=== PATIENT | male | born 1960 | race African-American/Black ===

== ENCOUNTER 2017-02-01 18:45 | Emergency (ER) | payer OTHER ==
[~2017-02-01] VITALS: Ht 177.8 cm; Wt 97.5 kg
[2017-02-01 19:50] VITALS: BP 128/85
== END 2017-02-01 19:50 | disposition other institution (70) ==
LOC: ED 18:45
DX: Z02.89 Encounter for other administrative examinations (principal)

== ENCOUNTER 2019-02-11 13:10 | Emergency (ER) | payer OTHER ==
[~2019-02-11] VITALS: Ht 177.8 cm; Wt 108.9 kg
[2019-02-11 13:17] VITALS: Ht 177.8 cm; Wt 108.9 kg
[2019-02-11 14:00] LABS: BASOPHIL % 0.5 % (0-2); PLATELET COUNT 302 x10^3mcL (130-400)
[2019-02-11 14:03] LABS: RED CELL DISTRIBUTION WIDTH 15.2 % (11.5-14.5)
[2019-02-11 15:17] LABS: AMPHETAMINE QUAL UR NONE DETECTED (See below)
[2019-02-11 15:26] LABS: CALCIUM 8.7 mg/dL (8.5-10.1); CARBON DIOXIDE 25.1 mmol/L (21-32); CHLORIDE SERUM 105 mmol/L (98-107); CREATININE SERUM 1.1 mg/dL (0.7-1.3); GFR1 > 60 mL/min; GLUCOSE SERUM 92 mg/dL (74-106); POTASSIUM SERUM 4.1 mmol/L (3.5-5.1); SODIUM SERUM 141 mmol/L (136-145)
[2019-02-11 15:33] LABS: ALBUMIN 3.9 g/dL (3.4-5.0); ALKALINE PHOSPHATASE 80 U/L (46-116); ALT/SGPT 34 U/L (16-63); AST/SGOT 27 U/L (15-37); BILIRUBIN TOTAL 0.29 mg/dL (0.20-1.00); TOTAL PROTEIN, SERUM 7.4 g/dL (6.4-8.2)
[2019-02-11 16:11] VITALS: BP 171/87
== END 2019-02-11 16:27 | disposition short-term general hospital (02) ==
LOC: ED 13:10
DX: R51 Headache (principal); I10 Essential (primary) hypertension; I71.4 Abdominal aortic aneurysm, without rupture; E78.00 Pure hypercholesterolemia, unspecified; M10.9 Gout, unspecified; N40.0 Benign prostatic hyperplasia without lower urinary tract symptoms; Z88.6 Allergy status to analgesic agent; Z88.2 Allergy status to sulfonamides; Z88.1 Allergy status to other antibiotic agents
CPT/HCPCS: J0360; J2270; J2405; J3490; Q0092